=== PATIENT | male | born 1995 | race Two or more races ===

== ENCOUNTER 2020-02-27 05:33 | Emergency (ER) | payer SELFPAY ==
[~2020-02-27] VITALS: Ht 170.2 cm; Wt 98.0 kg
[2020-02-27 05:44] VITALS: BP 157/94
--- NOTE | 2020-02-27 06:45 | PHYS DOC ---
Past Medical History Past Medical History: No Pertinent History Past Surgical History: No Surgical History Smoking Status: Never Smoker Alcohol Use: None Adult General Chief Complaint Chief Complaint: RIB PAIN HPI HPI Patient is a 24 year old male who presents to the ED with a chief complaint of left rib pain. Patient states that the pain is been present for the last 4 days. Patient states that the pain is present when he moves or when he coughs. Patient states that the pain is resolved when he sits still. Patient denies shortness of breath, nausea, sweating. Patient denies any obvious injury. Patient denies being an active smoker. Patient describes the pain as states that it is 6 out of 10. Review of Systems Review of Systems Constitutional: Denies fever or chills HENT: Denies nasal congestion, sore throat, sinus tenderness Respiratory: Denies cough or shortness of breath Cardiovascular: Complains of left chest wall pain GI: Denies abdominal pain, nausea, vomiting or diarrhea : Denies dysuria or hematuria Musculoskeletal: Denies back pain or joint pain Skin: Denies rash or skin lesions Neurologic: Denies headache, focal weakness or sensory changes Complete systems were reviewed and found to be within normal limits, except as documented in this note. All other systems were reviewed and found to be within normal limits, except as documented in this note. Current Medications Current Medications Current Medications Medications (Trade) Dose Ordered Sig/Negar Start Time Stop Time Status Last Admin Dose Admin Ketorolac Tromethamine (Toradol Im) 60 mg 1X ONCE 02/27/20 07:00 02/27/20 07:06 DC Allergies Allergies Allergies Coded Allergies Type Severity Reaction Last Updated Verified No Known Drug Allergies 02/27/20 No Physical Exam Physical Exam Constitutional: Well developed, well nourished, no acute distress, non-toxic appearance. HENT: Normocephalic, atraumatic, normocaphalic Eyes: PERRL, EOMI Neck: Normal range of motion, no tenderness, supple Cardiovascular:Heart rate regular rhythm, no murmur. Resp: Bilateral breath sounds clear to auscultation Abdomen: Soft, no tenderness, no distension Skin: Warm, dry, no erythema, no rash. Back: No tenderness, no CVA tenderness. Extremities: No tenderness, ROM intact, no edema. Neurologic: Alert and oriented X 3, normal motor function, normal sensory function, no focal deficits noted. Psychologic: Affect normal, judgement normal, mood normal. Current Patient Data Vital Signs Vital Signs Date Time Temp Pulse Resp B/P (MAP) Pulse Ox O2 Delivery O2 Flow Rate FiO2 02/27/20 05:44 98.4 112 20 157/94 (115) 98 Room Air 98.4 EKG EKG [] Radiology/Procedures Radiology/Procedures [] Impressions: Left rib x-rays with chest shows no acute fractures. Course & Med Decision Making Course & Med Decision Making Pertinent Labs and Imaging studies reviewed. (See chart for details) Patient presents with left-sided chest pain that is worse with movement and coughing. Patient denies injury. Ordered left rib series with AP chest. X-rays do not show any acute fractures. Patient is given Toradol IM in the ER. Discussed results and plan of care patient. Most likely secondary to her rib strain. Patient states that he feels better after Toradol. Instructed patient to take Tylenol for pain control. Discussed results and plan of care with patient. Patient is instructed to follow up with PCP in one to 2 days. Appropriate discharge instructions given to patient to return to the ED or to seek immediate medical evaluation. Patient is instructed to return to the ED if symptoms worsen or if any concerns. Dragon Disclaimer Dragon Disclaimer This electronic medical record was generated, in whole or in part, using a voice recognition dictation system. Departure Departure Disposition: 01 HOME, SELF-CARE Condition: LEFT WITHOUT BEING SEEN Referrals: NO PCP (PCP) Patient Instructions: Chest Wall Pain, [id number] Additional Instructions: Patient instructed to follow up with PCP in one to 2 days. Patient instructed to return to the ED if symptoms worsen or if any concerns. Appropriate discharge instructions given to patient to return to the ED or to seek immediate medical evaluation. EMILIA JACKSON DO Feb 27, 2020 06:45
[2020-02-27] MEDS ORDERED: KETOROLAC 60 MG/2 ML VIAL. IM ONE (07:00)
--- NOTE | 2020-02-27 07:06 | RAD ---
RIBS LEFT AND PA CHEST DATE: 02/27/2020 6:29 AM INDICATION: None COMPARISON: None available. FINDINGS: Chest: Heart size is within normal limits. No focal consolidations are seen. No evidence for pulmonary edema, pleural effusion, or pneumothorax. Bones: No radiographic evidence for a displaced, left-sided rib fracture is seen. IMPRESSION: No radiographic evidence for left-sided rib fracture. Electronically signed by: Shashi Clay MD (02/27/2020 7:03 AM) [id number]
== END 2020-02-27 07:51 | disposition home or self-care (01) ==
LOC: ER 05:33
DX: R07.89 Other chest pain (principal); R05 Cough; R07.81 Pleurodynia
CPT/HCPCS: 71101; 99283